=== PATIENT | male | born 1975 | race Caucasian/White ===

== ENCOUNTER 2021-12-22 12:01 | Emergency (ER) | payer BC ==
[2021-12-22 12:26] VITALS: BP 115/73; PULSE 68; TEMP 98.6; BMI 28.5
[2021-12-22 13:38] LABS: BASO % 0.8 % (0-2.0); HEMATOCRIT 41.4 % (35.4-49); HEMOGLOBIN 14.4 GM/dL (11.7-16.9); LYMPH % 38.8 % (8-40); MCH 26.8 pg (25.7-33.7); MCHC 34.7 g/dl (32.0-35.9); MEAN CELL VOLUME 77.2 fl (80-96); MEAN PLT VOLUME 9.1 fl (7.5-11.1); MONO % 6.9 % (3.8-10.2); NEUT % 51.5 % (42.8-82.8); PLATELET COUNT 168 10^3/uL (134-434); RBC 5.36 M/mm3 (4.00-5.60); RDW 12.9 % (11.9-15.9); WHITE BLOOD COUNT 6.6 K/mm3 (4.0-10.0)
[2021-12-22 13:56] LABS: SODIUM 139 mmol/L (136-145)
[2021-12-22 13:58] LABS: CALCIUM 9.5 mg/dL (8.5-10.1)
[2021-12-22 13:59] LABS: ALBUMIN 3.9 g/dl (3.4-5.0); BLOOD UREA NITROGEN 12.5 mg/dL (7-18); CO2 30 mmol/L (21-32); GLUCOSE,RANDOM 94 mg/dL (74-106); LIPASE 76 U/L (73-393)
[2021-12-22 14:02] LABS: SGOT/AST 16 U/L (15-37); SGPT/ALT 22 U/L (13-61)
[2021-12-22 14:03] LABS: BILIRUBIN,TOTAL 0.6 mg/dL (0.2-1); TOT PROT 7.6 g/dl (6.4-8.2)
[2021-12-22 14:04] LABS: ALK PHOS 60 U/L (45-117)
[2021-12-22 14:25] LABS: ANION GAP 4 MMOL/L (8-16); CHLORIDE 105 mmol/L (98-107)
== END 2021-12-22 14:58 | disposition home or self-care (01) ==
LOC: JER 12:01
DX: R04.2 Hemoptysis (principal)
CPT/HCPCS: 36415; 71046-TC-FY; 80053; 82550; 82553; 83690; 84484; 85025; 93005; 93010; 99285-25

== ENCOUNTER 2022-01-07 19:18 | Observation (INO) | payer BC ==
[2022-01-07] MEDS ORDERED: ACETAMINOPHEN 325 MG TABLET (FP) PO ONE (21:20)
[2022-01-07] MEDS ORDERED: ACETAMINOPHEN 325 MG TABLET (FP) ONE (21:37)
[2022-01-07 21:43] LABS: BASO % 0.4 % (0-2.0); EOS % 1.4 % (0-4.5); HEMATOCRIT 40.6 % (35.4-49); HEMOGLOBIN 14.2 GM/dL (11.7-16.9); LYMPH % 29.6 % (8-40); MCH 27.1 pg (25.7-33.7); MCHC 35.1 g/dl (32.0-35.9); MEAN CELL VOLUME 77.4 fl (80-96); MEAN PLT VOLUME 9.1 fl (7.5-11.1); MONO % 7.1 % (3.8-10.2); NEUT % 61.5 % (42.8-82.8); PLATELET COUNT 187 10^3/uL (134-434); RBC 5.25 M/mm3 (4.00-5.60); WHITE BLOOD COUNT 7.7 K/mm3 (4.0-10.0)
[2022-01-07 22:15] LABS: CHLORIDE 101 mmol/L (98-107); SODIUM 137 mmol/L (136-145)
[2022-01-07 22:16] LABS: CALCIUM 8.9 mg/dL (8.5-10.1)
[2022-01-07 22:17] LABS: ALBUMIN 3.9 g/dl (3.4-5.0); ANION GAP 5 MMOL/L (8-16); BLOOD UREA NITROGEN 13.1 mg/dL (7-18); CO2 32 mmol/L (21-32); GLUCOSE,RANDOM 122 mg/dL (74-106)
[2022-01-07 22:20] LABS: CREATININE 1.2 mg/dL (0.55-1.3); SGOT/AST 21 U/L (15-37)
[2022-01-07 22:22] LABS: BILIRUBIN,TOTAL 0.4 mg/dL (0.2-1); TOT PROT 7.7 g/dl (6.4-8.2)
[2022-01-07 22:23] LABS: ALK PHOS 66 U/L (45-117)
[2022-01-07 22:58] LABS: SGPT/ALT 26 U/L (13-61)
[2022-01-08] MEDS ORDERED: ENOXAPARIN NA (PORCINE) 80 MG/0.8 ML DISP.SYRIN SQ ONE ×2 (00:10→00:15)
[2022-01-08 04:30] VITALS: BMI 28.4
[2022-01-08 04:58] LABS: CHOLESTEROL 155 mg/dL (50-200)
[2022-01-08 04:59] LABS: TRIGLYCERIDES 168 mg/dL (0-150)
[2022-01-08 05:00] LABS: LDL CHOLESTEROL (ONLY SJRH) 82 mg/dL (5-100)
[2022-01-08 05:01] LABS: HDL CHOLESTEROL 48 mg/dL (40-60)
[2022-01-08] MEDS: APIXABAN 5 MG TABLET PO SCH ×2 (09:27→21:04)
[2022-01-08 11:20] LABS: HEMATOCRIT 42.2 % (35.4-49); HEMOGLOBIN 14.6 GM/dL (11.7-16.9); MCH 27.4 pg (25.7-33.7); MCHC 34.5 g/dl (32.0-35.9); MEAN CELL VOLUME 79.4 fl (80-96); MEAN PLT VOLUME 8.6 fl (7.5-11.1); PLATELET COUNT 169 10^3/uL (134-434); RBC 5.32 M/mm3 (4.00-5.60); RDW 13.7 % (11.9-15.9); WHITE BLOOD COUNT 7.1 K/mm3 (4.0-10.0)
[2022-01-08 11:32] LABS: CALCIUM 9.5 mg/dL (8.5-10.1)
[2022-01-08 11:33] LABS: MAGNESIUM 2.5 mg/dL (1.8-2.4)
[2022-01-08 11:34] LABS: ALBUMIN 3.8 g/dl (3.4-5.0); BLOOD UREA NITROGEN 9.6 mg/dL (7-18)
[2022-01-08 11:37] LABS: PHOSPHOROUS 2.9 mg/dL (2.5-4.9); TOT PROT 7.6 g/dl (6.4-8.2)
[2022-01-08 11:39] LABS: BILIRUBIN,TOTAL 0.5 mg/dL (0.2-1)
[2022-01-08] MEDS ORDERED: ACETAMINOPHEN 1000 MG/100 ML BAG IVPB PRN (18:21)
[2022-01-08] MEDS ORDERED: MELATONIN 5 MG TABLETS PO SCH (22:00)
[2022-01-09 08:45] LABS: BASO % 0.4 % (0-2.0); EOS % 1.7 % (0-4.5); HEMATOCRIT 41.4 % (35.4-49); HEMOGLOBIN 14.2 GM/dL (11.7-16.9); LYMPH % 37.7 % (8-40); MCH 26.7 pg (25.7-33.7); MCHC 34.2 g/dl (32.0-35.9); MEAN CELL VOLUME 77.9 fl (80-96); MONO % 6.5 % (3.8-10.2); NEUT % 53.7 % (42.8-82.8); PLATELET COUNT 184 10^3/uL (134-434); RBC 5.32 M/mm3 (4.00-5.60); RDW 13.1 % (11.9-15.9); WHITE BLOOD COUNT 6.6 K/mm3 (4.0-10.0)
[2022-01-09 09:00] LABS: INR 1.32 (0.83-1.09); PROTHROMBIN TIME (PATIENT) 15.2 SEC (9.7-13.0)
[2022-01-09 09:03] LABS: ACTIVATED PTT 38.2 SECONDS (25.2-36.5)
[2022-01-09 09:15] LABS: ALBUMIN 3.6 g/dl (3.4-5.0); PHOSPHOROUS 3.1 mg/dL (2.5-4.9)
[2022-01-09 09:19] LABS: BLOOD UREA NITROGEN 9.4 mg/dL (7-18); TOT PROT 7.2 g/dl (6.4-8.2)
[2022-01-09 09:21] LABS: CALCIUM 9.9 mg/dL (8.5-10.1)
[2022-01-09 09:22] LABS: MAGNESIUM 2.2 mg/dL (1.8-2.4)
[2022-01-09 09:25] LABS: BILIRUBIN,TOTAL 0.8 mg/dL (0.2-1)
[2022-01-09] MEDS: APIXABAN 5 MG TABLET PO SCH (09:52)
[2022-01-09 17:52] VITALS: BP 103/76; PULSE 65; TEMP 98.3
== END 2022-01-09 19:10 | disposition home or self-care (01) ==
LOC: JER 19:18 → UNDOADMOB 01-08 00:17 → JERBED 01-08 00:17 → INTOOBSV 01-08 00:17 → JERBED 01-08 02:11 → J5S 01-08 04:09
PROVIDERS: ADMIT Hospitalist; ATTEND Nurse Practitioner Acute Care
PROC: 3E023GC Introduction of Other Therapeutic Substance into Muscle, Percutaneous Approach (ICD-10-PCS; principal; 2022-01-08)
DX: I26.99 Other pulmonary embolism without acute cor pulmonale (principal); Z29.9 Encounter for prophylactic measures, unspecified; Z23 Encounter for immunization
CPT/HCPCS: 36415; 71275-TC; 80053; 80061; 82550; 82553; 83735; 84100; 84484; 85025; 85027; 85379; 85610; 85730; 93005; 93010; 93306-TC; 93970-TC; 99285-25; C9803; G0378; Q9967; U0003; U0005